=== PATIENT | female | born 1985 | race Caucasian/White ===

== ENCOUNTER 2025-04-24 17:01 | Emergency (ER) | payer MEDICAID, SELFPAY ==
[2025-04-24 17:15] VITALS: BP 93/52; BP 98/72; PULSE 78; PULSE 81; RESP 17; TEMP 36.2; O2SAT 94; O2SAT 95; BMI 32.8
--- OUTSIDE RECORDS SUMMARY | 2025-04-24 18:20 | XMS_ITS | Clinical Summary ---
Author Organization [facility] Address [address] [place], [place] [id number] Care Team Providers Care Production Recovery Operator Name Role Phone System, Provider Not In Primary Care Provider Un available Allergies Active Allergy Reactions Criticality Noted Date Comments Amoxicillin Unknown 10/08/2024 Baclofen Unknown 10/08/2024 Codeine Unknown 10/08/2024 Haloperidol Lactate Unknown 10/08/2024 Cephalexin Unknown 10/08/2024 Latex, Natural Rubber Unknown 10/08/2024 Penicillins Unknown 10/08/2024 Quetiapine Unknown 10/08/2024 Medications ARIPiprazole (ABILIFY) 30 MG tablet Take 1 tablet (30 mg total) by mouth daily. 08/27/20 23 Active atorvaSTATin (LIPITOR) 40 MG tablet Take 1 tablet (40 mg total) by mouth at bedtime. 07/08/20 24 025 Active levETIRAcetam (KEPPRA) 500 MG tablet Take 1 tablet (500 mg total) by mouth every morning & every evening. 03/05/20 24 Active topiramate (TOPAMAX) 50 MG tablet Take 1 tablet (50 mg total) by mouth every morning & every evening. 04/22/20 22 Active traZODone (DESYREL) 100 MG tablet Take 1 tablet (100 mg total) by mouth at bedtime as needed for insomnia. Active busPIRone (BUSPAR) 10 MG tablet Take 1 tablet (10 mg total) by mouth 3 times a day. Active prazosin (MINIPRESS) 1 MG capsule Take 1 capsule (1 mg total) by mouth at bedtime. Active QUEtiapine (SEROquel) 50 MG tablet Take 1 tablet (50 mg total) by mouth at bedtime as needed (INSOMNIA). Active acetaminophen (TYLENOL) 325 MG tablet Take 2 tablets (650 mg total) by mouth every 4 hours as needed for fever or pain. Active hydrOXYzine pamoate (VISTARIL) 25 MG capsule Take 1 capsule (25 mg total) by mouth every 6 hours as needed for anxiety. 01/07/20 Active ondansetron (ZOFRAN) 4 MG tablet Take 1 tablet (4 mg total) by mouth every 8 hours as needed. Active FREESTYLE LITE STRIPS Strp 1 strip by Miscellaneous route 3 times a day. 07/05/20 24 Active freestyle 28 gauge lancets 1 Lancet by Miscellaneous route 4 times a day. 07/05/20 Active methadone (METHADOSE) 40 mg disintegrating tablet Take 2 tablets (80 mg total) by mouth every morning. Active pramipexole (MIRAPEX) 0.125 MG tablet Take 1 tablet (0.125 mg total) by mouth every 4 hours as needed (RLS). Active omeprazole (PriLOSEC) [address] capsule Take 1 capsule (20 mg total) by mouth daily. Active aluminum-magnesium hydroxide-simethic one (Mylanta/Maalox) (200-200-20 mg)/5 mL Susp Take 30 mL by mouth every 6 hours as needed (GI UPSET). Active diphenhydrAMINE (BENADRYL) 25 mg capsule Take 2 capsules (50 mg total) by mouth at bedtime as needed for insomnia. Active docusate sodium (COLACE) 100 MG capsule Take 1 capsule (100 mg total) by mouth every 6 hours as needed for constipation. Active guaiFENesin (ROBITUSSIN) 100 mg/5 mL syrup Take 5 mL (100 mg total) by mouth every 4 hours as needed for cough. Active melatonin 3 mg Tab tablet Take 1 tablet (3 mg total) by mouth at bedtime as needed for insomnia. Active miconazole (MICONAZOLE 7) 2 % vaginal cream Insert 1 applicator into the vagina at bedtime. Active multivitamin per tablet Take 1 tablet by mouth daily. Active insulin lispro (HUMALOG KWIKPEN) 100 unit/mL pen Inject 0.25 mL (25 Units total) under the skin daily with breakfast AND 0.25 mL (25 Units total) daily with lunch AND 0.2 mL (20 Units total) daily with dinner. Do all this for 60 days. 10/15/19 25 Active insulin glargine-yfgn (Semglee) 100 unit/mL (3 mL) SubQ pen Inject 0.65 mL (65 Units total) under the skin at bedtime. 10/18/19 25 Active Active Problems Problem Noted Date Diagnosed Date Cellulitis 10/09/2024 Family History Medical History Relation Comments Bipolar disorder Father Schizophrenia Mother Bipolar disorder Paternal Uncle Relation Status Comments Father Mother Paternal Uncle Social History Tobacco Use Types Packs/Day Years Used Date Smoking Tobacco: Some Days Cigarettes Tobacco Cessation:Ready to Q uit: Not Asked; Counseling Given: Not Answered Alcohol Use Standard Drinks/Week Comments Not Asked 0 (1 standard drink = 0.6 oz pur e alcohol) a pint daily B1300 Health Literacy Answer Date Recor ded How often do you need to hav e someone help you when you read instructions, pamphlets, or other written material from your doctor or pharmacy? Never 10/12/2024 [facility] Utilities Answer Date Recorded In the past 12 months has e [employer], [employer], oil, or water [place] threatened to shut off services in your home? Yes 10/10/2024 Humiliation, Afraid, Rape, and Kick questionnair e Answer Date Recorded Within the last year, have y ou been afraid of your partner or ex-partner? No 10/12/2024 Emotionally Abused Not on file 10/12/2024 Physically Abused Not on file 10/12/2024 Sexually Abused Not on file 10/12/2024 Social Connection and Isolation Panel Answer Date Recorded Frequency of Communication with Friends and Fami ly Not on file 10/12/2024 Frequency of Social Gatherings with Friends and Family Not on file 10/12/2024 Attends Taoism Services Not on file 10/12 Active Member of Clubs or Organizations Not on f ile 10/12/2024 Attends Club or Organization Meetings Not on ritika e 10/12/2024 Are you , , di vorced, , never , or living with a partner? 10/12/2024 AUDIT-C Answer Date Recorded Q1: How often do you have a drink containing alc ohol? 2-3 times a week 10/12/2024 Average Number of Drinks Not on file 025 Frequency of Binge Drinking Not on file 10/01 Overall Financial Resource Strain (CARDIA) Answe r Date Recorded How hard is it for you to pa y for the very basics like food, housing, medical care, and heating? Very hard 10/12/2024 [facility] [place] [facility] - Occupational Stress Questionnaire Answer Date Recorded Do you feel stress - tense, restless, nervous, or anxious, or unable to sleep at night because your mind is troubled all the time - these days? Rather much 10/12/2024 Hunger Vital Sign Answer Date Recorded Within the past 12 months, y ou worried that your food would run out before you got the money to buy more. Sometimes true Ran Out of Food in the Last Year Not on file 10/12/2024 PRAPARE - Transportation Answer Date Re corded In the past 12 months, has l ack of transportation kept you from medical appointments or from getting medications? Yes 10/01 In the past 12 months, has l ack of transportation kept you from meetings, work, or from getting things needed for daily living? Yes 10/12/2024 Housing Stability Vital Sign Answer Jesús e Recorded In the last 12 months, was t here a time when you were not able to pay the mortgage or rent on time? Yes 10/12/2024 Number of Times Moved in the Last Year Not on fi le 10/12/2024 At any time in the past 12 m [facility], were you homeless or living in a custodial (including now)? Yes 10/12/2024 Food Insecurity Answer Date Recorded Within the past 12 months, y ou worried that your food would run out before you got the money to buy more. Sometimes true Ran Out of Food in the Last Year Not on file 10/12/2024 Intimate Partner Violence Answer Date R ecorded Emotionally Abused Not on file 10/12/2024 Within the last year, have y ou been afraid of your partner or ex-partner? No 10/12/2024 Physically Abused Not on file 10/12/2024 Sexually Abused Not on file 10/12/2024 Housing Stability Answer Date Recorded Unstable Housing in the Last Year Not on file 10/12/2024 In the last 12 months, was t here a time when you were not able to pay the mortgage or rent on time? Yes 10/12/2024 [address] Lived in the Last Year Not on f ile 10/12/2024 AUDIT C Answer Date Recorded How often have you had a dri nk containing alcohol, in the past year? 4 10/14/2024 How many standard drinks con taining alcohol have you had on a typical day when you are drinking, in the past year? 4 0 10/14/2024 How often have you had six o r more drinks on one occasion, in the past year? 4 10/14/2024 Education Answer Date Recorded What is the highest level of school you have completed or the highest degree you have received? 6th grade 10/14/2024 Comments Unknown Sex and Gender Information Value Date Recorded Sex Assigned at Female 10/08/2024 11:23 PM EST Legal Sex Female 11:09 PM EST Gender Identity Female 10/08/2024 11:23 PM EST Sexual Orientation Not on file Last Filed Vital Signs Vital Sign Reading Time Taken Comments Blood Pressure 103/66 10/18/2024 8:00 AM EST Pulse 73 10/18/2024 8:00 AM EST Temperature 37.1 C (98.7 F) 10/18/2024 9:16 AM EST Respiratory Rate 19 10/18/2024 8:00 AM EST Oxygen Saturation 96% 10/18/2024 1:17 PM EST Inhaled Oxygen Concentration - - Weight 98.4 kg (217 lb) 10/09/2024 7:15 AM EST Height 162.6 cm (5' 4 ) 10/09/2024 7:15 AM EST Body Mass Index 37.25 10/09/2024 7:15 AM EST Plan of Treatment Health Maintenance Due Date Last Done Comments Depression Screening 1991 Diabetic Eye Exam 2005 Hepatitis C Screening 2005 HPV/Cotest 2017 Cervical Cancer Screening 12/21/2021 Pap Smear 12/21/2021 12/21/2018 COVID-19 Vaccine ( season) 2024 11/29/2020, 11/08/2020 Hemoglobin A1c 04/09/2025 10/10/2024, 02/0 05/2025, 07/05/2024, Additional history exists Influenza Vaccine (#1) 2025 3, 08/20/2022, 08/20/2022, Additional history exists Urine Microalbumin 07/05/2025 07/05/2024 Blood Pressure 10/18/2025 10/18/2024 DTaP,Tdap,and Td Vaccines (4 - Td or Tdap) 01/23/2028 01/22/2018, 12/25/2017, 06/07/2015 Lipid Panel 02/04/2029 02/05/2024, 06/16/2023 Pneumococcal Vaccine: Pediatrics (0 to 5 Years) and At-Risk Patients (6 to 64 Years) (3 of 3 - PCV20 or PCV21) 2037 03/13/2021, 07/19/2019, 08/06/2018 Meningococcal B Vaccines Aged Out No longer eligible based on patient's age to complete this topic Meningococcal Vaccines Aged Out No lo nger eligible based on patient's age to complete this topic Procedures Procedure Name Priority Date/Time Associated Diagnosis Comments HEMOGLOBIN A1C Routine 10/10/2024 6:44 AM EST from Last 3 Months or Most Recently Relevant to Health Maintenance Results * (ABNORMAL) Hemoglobin A1C (10/10/2024 6:44 AM EST) Hemoglobin A1C 9.6(H) 4.2 - 5.8 % 10/10/2024 8:47 AM EST [facility] Estimated Average Glucose 229 mg/dL 10/10/2024 8:47 AM EST [facility] Blood PERIPHERAL BLOOD SPECIMEN / Unknown Venipuncture / Unknown 10/10/2024 6:44 AM EST 10/10/2024 6:57 AM EST us Maureen Ahumada MD LAB BLOOD ORDERABLES Final Result [facility] [address] [place] [id number], from Last 3 Months or Most Recently Relevant to Health Maintenance [place] Advance Directives * Full Code (Latest Code Status on File) Date Activated Date Inactivated Comments 10/09/2024 6:44 AM Question Answer Comments Discussed with/per: Patient Care Teams Production Recovery Operator Relationship Specialty Start Date End Date System, Provider Not In PCP - General 09/29/24
[2025-04-24 18:37] LABS: Glucose, Whole Blood 175 mg/dL (60-115)
[2025-04-24] MEDS: Fluorescein Sodium STRIP 1 STRIP EYE-RIGHT (18:39)
[2025-04-24] MEDS: Tetracaine HCl 0.5% Oph Sol 5 ML DROPS 3 DROP EYE-RIGHT (18:39)
[2025-04-24 18:49] VITALS: BP 112/68; PULSE 83; RESP 16; O2SAT 96
--- NOTE | 2025-04-24 18:56 | ED_ITS ---
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 Patient states she has been treated with the erythromycin for conjunctivitis and a stye. Her symptoms have not improved. Associated swelling and redness along the lower lid, associated pain in itchiness with ocular discharge. Patient denies use of contact lenses. Patient denies inability to perform range of motion of the eye. Related Data Previous Rx's ?Medication ?Instructions ?Recorded doxycycline hyclate 100 mg capsule 100 mg PO BID #13 c aps 04/24/25 ofloxacin 0.3 % eye drops See Rx Instructions ophthalm ic 04/24/25 (eye) .COMPLEX #10 mL Allergies Allergy/AdvReac Type Severity Reaction Status Date / Time blueberry Allergy Unknown Verified 04/24/25 17:20 latex Allergy Unknown Verified 04/24/25 17:20 Review of Systems Review of Systems: Yes all other systems are reviewed and are negative Constitutional: Constitutional: Denies fatigue and Denies fever(s) Eyes: Eyes: Denies change in vision, Reports eye discharge, Reports irritation, Reports itchy eyes and Reports eye pain Endocrine: Endocrine: Denies fatigue Allergic/Immunologic: Allergic/Immunologic: Reports itchy eyes PMFSH Past Medical History Attestation statement: The following information was validated with the patient. Social History Social History Smoked in Last 30 Days: No Use of substances other than those prescribed or required for medical reasons: No Advance Directives: No Advance Directives Information Provided: No Do you have a plan to hurt others: No Plan Patient : No Physical Exam ED Vital Signs: Vital Signs - 24 hr 04/24/25 17:15 04/24/25 18:49 Temperature 97.1 F Pulse Rate 81 83 Respiratory Rate 17 16 Blood Pressure 93/52 L 112/68 Pulse Oximetry 94 96 Oxygen Delivery Method Room Air Room Air BMI result Body Mass Index 32.8 Const Other: Alert Orientation/consciousness: patient oriented x3 Eyes Other: Vulvar conjunctiva not injected, mild injection of the palpebral conjunctiva, stye noted along lateral lower lid margin associated swelling and erythema that is spans beneath the eye. Extraocular eye movements intact. With fluorescein stain, there is no corneal abrasion. Resp Effort & Inspection: normal respiratory effort Cardio Other: Normal peripheral perfusion Skin Other: Warm dry no rash Neuro General: patient oriented x3, gait normal, no focal motor deficits and CN's II- XI intact bilaterally Psych Other: Belligerent Medications Administered Discontinued Medications Generic Name Dose Route Start Last Admin Trade Name Crista PRN Reason Stop Dose Admin Fluorescein Sodium 1 strip 04/24/25 18:33 04/24/25 18:39 Fluorescein Sodium Strip EYE-RIGHT 04/24/25 18:34 1 strip ONCE ONE Administration Tetracaine HCl 3 drop 04/24/25 18:33 04/24/25 18:39 Tetracaine Hcl 0.5% Oph Keira 5 Ml Drops EYE-RIGHT 04/24/25 18:34 3 drop ONCE ONE Administration Medical Decision Making Medical Decision Making 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 Patient states she has been treated with the erythromycin for conjunctivitis and a stye. Her symptoms have not improved. Associated swelling and redness along the lower lid, associated pain in itchiness with ocular discharge. Patient denies use of contact lenses. Patient denies inability to perform range of motion of the eye. Problem: Diabetes History: Per patient I have considered the following differential diagnoses: Preseptal/periorbital cellulitis, stye, blepharitis, conjunctivitis, corneal abrasion Plan: The patient has a stye, it appears she may be developing blepharitis, we will be treated for conjunctivitis, there was no corneal abrasion on exam. I do not have concern for preseptal cellulitis she has retained range of motion, I am covering with a an oral antibiotic as well due to her diabetes, and the expansion of the erythema beneath the lid. We will send with a fluoroquinolone, I suspect her symptoms have not resolved given she was on an inappropriate antibiotic. I have independently reviewed the following tests: Labs: Sugar 175. of care Differential Diagnosis Differential Diagnoses: The differential diagnosis associated with the presentation includes See [facility] Admission/Observation Consideration of admission/observation: Escalation of care including admission/observation considered Not applicable Lab Data [facility] Lab Attestation statement: I reviewed the patient's lab results. Labs: Lab Results 04/24/25 Range/Units 18:34 POC Glucose 175 H (60-115) mg/dL Discharge Plan Discharge Clinical Impression: Conjunctivitis of right eye, Blepharitis, right eye, Hordeolum externum right lower eyelid, Cellulitis Patient Disposition: Home, Self-Care Instructions: Cellulitis (ED), Stye (ED), Blepharitis (ED), Conjunctivitis (ED), Warm Compress or Soak (ED) Additional Instructions: You are being treated for conjunctivitis, the stye, in the subsequent development of surrounding cellulitis and blepharitis. Blepharitis is inflammation of the lower lid. It is all treated the same. Use the eye drops as directed. Apply warm compresses several times a day to the lower portion of your eye. Take the doxycycline as directed, complete the course of this antibiotic. You need to follow up with primary care for recheck within 1 1/2 weeks. Prescriptions: New doxycycline hyclate 100 mg capsule 100 mg PO BID Qty: 13 0RF ofloxacin 0.3 % drops See Rx Instructions .ROUTE .COMPLEX Qty: 10 0RF Rx Instructions: put 1-2 drps into affected eye(s) every 2-4 h x 2 days, then 1-2 drps 4 times/day days 3-7 Print Language: Bahraini
[2025-04-24 19:33] VITALS: BP 112/68; PULSE 83; RESP 16; TEMP 36.7; O2SAT 96
--- NOTE | 2025-04-24 20:09 | PC.NURSE ---
Nurse to nurse report given to Luis Enrique Hayward RN at [facility], pt waiting for EMS for transport at this time.
[2025-04-24 20:27] VITALS: BP 112/68; PULSE 83; RESP 16; TEMP 36.7; O2SAT 96
[2025-04-24 20:53] VITALS: BP 112/68; PULSE 83; RESP 16; TEMP 36.7; O2SAT 96
== END 2025-04-24 21:00 | disposition home or self-care (01) ==
PROVIDERS: Emergency Provider Emergency Medicine
DX: H00.012 Hordeolum externum right lower eyelid (principal); H10.31 Unspecified acute conjunctivitis, right eye; H01.002 Unspecified blepharitis right lower eyelid
CPT/HCPCS: 82947; 99283; 99284